=== PATIENT | male | born 1990 | race Caucasian/White ===

== ENCOUNTER → 2016-11-17 | Outpatient (CLI) | payer MEDICAID ==
--- NOTE | 2016-11-17 11:28 | US ---
Testicular Sonography with Color and Spectral Doppler Clinical History: 25-year-old male with testicular pain for one year. ICD 10 Diagnostic Code: N50.819. TECHNIQUE: A linear 12 MHz transducer was used to sonographically evaluate each hemiscrotum. Color an d spectral Doppler were used. COMPARISON STUDY: None. FINDINGS: Right Hemiscrotum: The testis is normal in size, shape, and position, and is homogeneous in echotextu re, measuring 5.3 x 3.1 x 3.1 cm. Intratesticular vascular flow is documented with a resistive index of 0.64. There is a tiny amount of physiologic fluid in the right . There is no varicocele. The epidi dymis is normal. Left Hemiscrotum: As on the contralateral side, the testis is normal in size, shape, and position, an d homogeneous in echotexture, measuring 5.1 x 2.7 x 2.8 cm. Intratesticular vascular flow is document ed with a resistive index of 0.60. A tiny (physiologic amount) of fluid is seen in the scrotal sac. T he epididymis is normal. There is no varicocele. IMPRESSION: Findings are within normal limits.
== END ==
LOC: FIMAGING 10:18
PROVIDERS: ATTEND Family Medicine
DX: N50.819 Testicular pain, unspecified (principal)